=== PATIENT | male | born 1960 | race African-American/Black ===

== ENCOUNTER 2018-06-12 15:10 | Emergency (ER) | payer SELFPAY ==
--- NOTE | 2018-06-12 15:16 | PDOC ---
History of Present Illness - General Chief Complaint: Back Pain Stated Complaint: LEFT LBP Time Seen by Provider: 06/12/18 15:12 History Source: Patient Exam Limitations: No Limitations - History of Present Illness Initial Comments: 06/12/18 15:18 Mr. Robles is a 57-year-old male, with a significant past medical history of HTN, Gout, Sciatica/ chronic intermittent low back pain, status post fusion L4- L5, history of peripheral neuropathy. He reports a progressive worsening of lumbar back pain over the past 5 days. 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 he was seen by his pain management physician yesterday, declined a trigger point injection. He went to work today and by the afternoon, his pain was severe He describes pain as sharp throbbing pain, initially intermittent, now constant On the left side the pain radiates to his foot On the right side, the pain radiates to knee Has been taking hydrocodone and advil which improves his pain but has not taken it today (he actually has a prescription for vicodin which he has yet to fill). He denies fevers or chills He denies bowel or bladder incontinence He denies foot weakness He denies new numbness PMH: Chronic back pain PSH: Lumabr laminectomy Meds: Hydrocodone, Motrin ALL: NKDA Social: denies IVDU, alcohol abuse FH: non contributory ROS: GENERAL/CONSTITUTIONAL: No: fever, chills, weakness HEAD, EYES, EARS, NOSE AND THROAT: No: change in vision, ear pain, discharge, sore throat, throat swelling. CARDIOVASCULAR: No: chest pain, lightheadedness, palpitations, syncope RESPIRATORY: No: cough, shortness of breath, wheezing, hemoptysis, stridor. GASTROINTESTINAL: No: nausea, vomiting, diarrhea, abdominal cramping, rectal bleeding, constipation. GENITOURINARY: No: dysuria, hematuria, frequency, urgency, flank pain. MUSCULOSKELETAL: Yes: back pain No: neck pain, joint pain, muscle swelling or pain SKIN: No: lesions, pallor, rash or easy bruising. NEUROLOGIC: No: headache, vertigo, paresthesias, weakness ENDOCRINE: No: unexplained weight gain or loss HEMATOLOGIC/LYMPHATIC: No: anemia, easy bleeding, swelling nodes. PE: General: A&O x3 appearing in pain Skin: no signs of trauma, ecchymosis at pain site HEENT: PERRLA Neck: Supple, firm, FROM, NT Respiratory: CTA w/o W/R/R B/L Cardiac: RRR, w/o M/R/G GI: NT/ND, NL bowel sounds Back is symmetrical, straight, no scoliosis or kyphosis. Pt is huntched able to bend forward. No tenderness appreciated to vertebrae. No step-offs. No deformities appreciated. There is no CVA tenderness appreciated bilaterally. (+) paravertebral muscle tenderness. Musculoskeletal: The patient has limited ability to lift legs due to pain. Straight leg raise is (+) bilaterally. Dorsiflexion and plantar flexion are intact of the bilateral lower extremities bilaterally. Sensation is intact throughout the distal feet. Neurologic: The patient is awake, alert, oriented x3. Gross motor and sensory exam is found to be intact. Muscle strength is 5/5 lower extremities bilaterally (L4,L5, S1). DTRs, patellar, and Achilles are 1 to 2+ equal bilaterally throughout. Sensation intact throughout (L4, L5, S1) Motor: L1-S1 intact Sensation: L1 - S1 intact Past History - Past Medical History Allergies/Adverse Reactions: Allergies Allergy/AdvReac Type Severity Reaction Status Date / Time No Known Allergies Allergy Verified 04/04/15 21:35 Home Medications: Ambulatory Orders Amlodipine Besylate [Norvasc -] 10 mg PO DAILY 06/12/18 Atenolol [Tenormin] 25 mg PO DAILY 06/12/18 Ibuprofen [Advil -] 400 mg PO TID PRN 06/12/18 Lisinopril 10 mg PO DAILY 06/12/18 HTN: Yes - Suicide/Smoking/Psychosocial Hx Smoking Status: Yes Smoking History: Current some day smoker Years of Tobacco Use: 5 Number of Cigarettes Smoked Daily: 0 Cigars Per Day: 1 Hx Alcohol Use: No Medical Decision Making - Medical Decision Making 06/12/18 15:41 [employer] REC[employer]DS Patient Name: Jm Robles Date: 1960 Address: [address] [place] [address] [place] [address] Sex: Male Rx Written Rx Dispensed Drug Quantity Days Supply Prescriber Name 05/14/2018 05/19/2018 hydrocodone-acetaminophen 10-325 mg tablet 120 30 Bettina Guidry [employer] 04/21/2018 04/21/2018 hydrocodone-acetaminophen 10-325 mg tablet 120 30 Lucrecia Ott Juana 03/23/2018 03/24/2018 hydrocodone-acetaminophen 10-325 mg tablet 120 30 Bettina Guidry [employer] 02/25/2018 02/25/2018 hydrocodone-acetaminophen 10-325 mg tablet 120 30 Bettina Guidry [employer] 01/23/2018 01/25/2018 hydrocodone-acetaminophen 10-325 mg tablet 120 30 Lucrecia Ott Juana 12/26/2017 12/26/2017 hydrocodone-acetaminophen 10-325 mg tablet 120 30 Rob Ottra Arias 11/25/2017 11/25/2017 hydrocodone-acetaminophen 10-325 mg tablet 120 30 Jorge Luis Tavarezrodrigoe 12/11/2016 11/05/2017 vireo red (19:1) 2.375mg thc and 0.125mg cbd/2-sec puff vape 1 10 Ellen Roque 12/11/2016 11/05/2017 vireo red (19:1) 4.75mg thc and 0.25mg cbd capsule 1 10 Ellen Rqoue 10/24/2017 10/27/2017 hydrocodone-acetaminophen 10-325 mg tablet 120 30 Bettina Guidry [facility] 09/30/2017 09/30/2017 hydrocodone-acetaminophen 10-325 mg tablet 120 30 Rob Ottra Arias 09/02/2017 09/02/2017 hydrocodone-acetaminophen 10-325 mg tablet 120 30 Jorge Luis Tavarezrodrigoe 12/11/2016 08/27/2017 vireo red (19:1) 2.375mg thc and 0.125mg cbd/2-sec puff vape 1 10 Ellen Roque 12/11/2016 08/27/2017 vireo blue (1:6) 0.7mg thc and 4.3mg cbd/capsule 1 10 Ellen Roque 08/05/2017 08/06/2017 hydrocodone-acetaminophen 10-325 mg tablet 120 30 CorbyJorge Luis kumarrodrigoe 07/07/2017 07/08/2017 hydrocodone-acetaminophen 10-325 mg tablet 120 30 Radha Ottcarrie Arias 06/12/18 16:28 Pt requesting medications in the ER He has prescriptions at home, does not need refills He has a pain management physician who can see him and do any additional injections he needs Will re assess and discharge Clinical Impression: chronic lower back pain, initial presentation *DC/Admit/Observation/Transfer Diagnosis at time of Disposition: Back pain of lumbar region with sciatica - Discharge Dispostion Disposition: HOME Condition at time of disposition: Stable Decision to Admit order: No - Referrals Referrals: Prashant Degroot MD [Primary Care Provider] - - Patient Instructions Printed Discharge Instructions: DI for Low Back Pain, DI for Back Pain With Sciatica, DI for Back Spasm Additional Instructions: Mr Robles Please be sure to follow up with Dr Degroot Please take medications as prescribed Feel free to return to the ER for any other concerns or complaints - Post Discharge Activity
[2018-06-12] MEDS ORDERED: KETOROLAC TROMETHAMINE 30 MG/1 ML VIAL IM ONE (15:49)
[2018-06-12 16:07] VITALS: BP 139/86; PULSE 65; TEMP 98.7; BMI 23.1
[2018-06-12] MEDS ORDERED: KETOROLAC TROMETHAMINE 30 MG/1 ML VIAL ONE (16:08)
== END 2018-06-12 16:54 | disposition home or self-care (01) ==
LOC: FER 15:10
PROC: 3E0233Z Introduction of Anti-inflammatory into Muscle, Percutaneous Approach (ICD-10-PCS; principal; 2018-06-12)
DX: M54.40 Lumbago with sciatica, unspecified side (principal); I10 Essential (primary) hypertension; M10.9 Gout, unspecified; G62.9 Polyneuropathy, unspecified; F17.210 Nicotine dependence, cigarettes, uncomplicated; Z98.1 Arthrodesis status
CPT/HCPCS: 99282-25

== ENCOUNTER 2019-01-20 18:39 | Emergency (ER) | payer OTHER | END 2019-01-20 19:52 | disposition home or self-care (01) | LOC: FER 18:39 ==

== ENCOUNTER 2019-05-07 16:11 | Emergency (ER) | payer BC, OTHER ==
[2019-05-07] MEDS ORDERED: KETOROLAC TROMETHAMINE 60 MG/2 ML VIAL IM ONE (16:32)
[2019-05-07] MEDS ORDERED: ACETAMINOPHEN 325 MG TABLET (FP) PO ONE (16:32)
--- NOTE | 2019-05-07 16:34 | PDOC ---
History of Present Illness - General Chief Complaint: Injury Stated Complaint: LEFT SHOULDER INJURY POSSIBLE FRACTURE Time Seen by Provider: 05/07/19 16:27 History Source: Patient Exam Limitations: No Limitations - History of Present Illness Initial Comments: 05/07/19 16:32 58y M no pmhx presents with L shoulder pain. The patient was scraping insulation off last friday, and injured his left shoulder. he went to urgent care and was dx with a shoulder fracture and was given a FU with orthopedics. He was unable to secure an ortho until today (through workers comp in [employer]) - he was taking motrin and the pain is minimally improved so he cam to the ED for evaluation. Pt denies any further injuries. denies any weakness, numnbess/ tingling, but notse it is pain ful to move it around. Pt is in a sling. pt is R hand dominant Past History - Past Medical History Allergies/Adverse Reactions: Allergies Allergy/AdvReac Type Severity Reaction Status Date / Time No Known Allergies Allergy Verified 01/20/19 18:41 Home Medications: Ambulatory Orders Amlodipine Besylate [Norvasc -] 10 mg PO DAILY 06/12/18 Atenolol [Tenormin] 25 mg PO DAILY 06/12/18 Lisinopril 10 mg PO DAILY 06/12/18 Allopurinol [Zyloprim -] 100 mg PO DAILY 05/07/19 Tramadol HCl 50 mg PO QID PRN #12 tablet MDD 4 05/07/19 COPD: No HTN: Yes - Suicide/Smoking/Psychosocial Hx Smoking Status: Yes Smoking History: Current some day smoker Years of Tobacco Use: 5 Have you smoked in the past 12 months: Yes Number of Cigarettes Smoked Daily: 0 Cigars Per Day: 1 'Breaking Loose' booklet given: 06/12/18 Hx Alcohol Use: No Drug/Substance Use Hx: No Substance Use Type: None Review of Systems - Review of Systems Able to Perform ROS?: Yes Comments:: 05/07/19 16:34 Constitutional - no reported Fever, Chills, Cardiac: no reported chest pain, Abd/GI: no reported nausea, vomiting Musculskelatal - +L shoulder pain no reported back pain, joint swelling skin - no reported bruising, erythema, rash neurological: no reported headache, numbness, focal weakness, tingling, ataxia, hematologic: no reported easy bruising, easy bleeding *Physical Exam - Physical Exam Comments: 05/07/19 16:36 GENERAL: The patient is awake, alert, and fully oriented, Nontoxic - in no acute distress. NECK: Normal range of motion, supple EXTREMITIES: mild diffuse shoulder ttp, no assymetry/ecchymosis/edema, s NEUROLOGICAL: LUE sensation symmetric, track man strength intact, wrist/mcp/digital extnsion/flexion intact, sensation intact throughout ED Treatment Course - RADIOLOGY Radiology Studies Ordered: Category Date Time Status SHOULDER-LEFT [RAD] Stat Radiology 05/07/19 16:27 Ordered Medical Decision Making - Medical Decision Making 05/07/19 16:40 pt with persistent shoulder pain after urgent care xray from last week, was uanble to fu with ortho so comes today for recurent pain. no n/v coompromise plan analgesia,xray anticpate outpatient ortho fu pt was fatimah to arrange an ortho fu for friday05/07/19 17:45 xray neg for fx on my read will have pt fu with ortho on for evaluation I discussed the physical exam findings, ancillary test results and final diagnoses with the patient. I answered all of the patient's questions. The patient was satisfied with the care received and felt comfortable with the discharge plan and treatment plan. The patient will call their primary care physician within 24 hours to arrange follow-up and will return to the Emergency Department with any new, persistent or worsening symptoms. *DC/Admit/Observation/Transfer Diagnosis at time of Disposition: Shoulder pain, left Qualifiers: Chronicity: acute Qualified Code(s): M25.512 - Pain in left shoulder - Discharge Dispostion Disposition: HOME Condition at time of disposition: Improved Decision to Admit order: No - Prescriptions Prescriptions: Tramadol HCl 50 mg PO QID PRN #12 tablet MDD 4 PRN Reason: Pain - Referrals Referrals: Abundio Pope [Primary Care Provider] - - Patient Instructions Printed Discharge Instructions: DI for Shoulder Pain Additional Instructions: Return to the emergency department immediately with ANY new, persistent or worsening symptoms. You MUST call and follow up with your doctor tomorrow for further evaluation of your symptoms. Results were discussed with you. Please make sure your doctor reviews the results of your emergency evaluation. Your Emergency Department visit is not complete without a follow up with your doctor. If you had any xrays during your visit, it was read preliminarily by myself, a Radiologist will review it and if there are any additional findings we will call you. - Post Discharge Activity
[2019-05-07 16:37] VITALS: BP 133/91; PULSE 73; TEMP 98; BMI 22.3
[2019-05-07] MEDS ORDERED: KETOROLAC TROMETHAMINE 60 MG/2 ML VIAL ONE (16:42)
[2019-05-07] MEDS ORDERED: ACETAMINOPHEN 325 MG TABLET (FP) ONE (16:42)
== END 2019-05-07 17:46 | disposition home or self-care (01) ==
LOC: FER 16:11
PROC: 3E0233Z Introduction of Anti-inflammatory into Muscle, Percutaneous Approach (ICD-10-PCS; principal; 2019-05-07)
DX: M25.512 Pain in left shoulder (principal); X58.XXXA Exposure to other specified factors, initial encounter; Y93.89 Activity, other specified; Y92.89 Other specified places as the place of occurrence of the external cause; I10 Essential (primary) hypertension; Z87.891 Personal history of nicotine dependence
CPT/HCPCS: 73030-TC-LT-FY; 99282-25